=== PATIENT | male | born 1965 | race Caucasian/White ===

== ENCOUNTER 2017-07-02 23:05 | Inpatient (IN) | payer MEDICAID, OTHER ==
[~2017-07-02] VITALS: Ht 182.9 cm; Wt 84.0 kg
[~2017-07-02 23:05] MED LIST: ASPI81CH6 PO; FERR325T PO; LIPI40TA PO; LOSA25TA PO; METO25TA3 PO; PLAV75TA29 PO; PRED10 PO
[2017-07-02 23:18] VITALS: BP 108/72; PULSE 97; RESP 20; TEMP 98.6
[2017-07-02] MEDS ORDERED: SODIUM CHLORID 0.9% 500 ML INJ 500 ML IV ONE (23:30)
[2017-07-02] MEDS ORDERED: ASPIRIN 81 MG CHEW TAB PO ONE (23:30)
[2017-07-02] MEDS ORDERED: SODIUM CHLORIDE 0.9% FLUSH 10 ML FLUSH IVF PRN (23:30)
[2017-07-02 23:31] VITALS: BP 108/72; PULSE 72; RESP 20; O2SAT 99
[2017-07-02 23:34] LABS: AUTOMATED NEUTROPHIL # 7.2 TH/MM3 (1.8-7.7); BASOPHIL % 0.3 % (0.0-2.0); EOSINOPHIL # 0.4 TH/MM3 (0-0.4); EOSINOPHIL % 4.5 % (0.0-4.0); HEMATOCRIT 42.1 % (39.0-51.0); LYMPH % 8.3 % (9.0-44.0); LYMPHOCYTE # 0.8 TH/MM3 (1.0-4.8); MEAN CELL VOLUME 89.4 FL (80.0-100.0); MEAN CORPUSCULAR HEMOGLOBIN 29.6 PG (27.0-34.0); MEAN CORPUSCULAR HGB CONC 33.2 % (32.0-36.0); MEAN PLATELET VOLUME 7.6 FL (7.0-11.0); MONO % 13.3 % (0.0-8.0); MONOCYTE # 1.3 TH/MM3 (0-0.9); NEUT % 73.6 % (16.0-70.0); PLATELET COUNT 435 TH/MM3 (150-450); RED BLOOD COUNT 4.71 MIL/MM3 (4.50-5.90); RED CELL DISTRIBUTION WIDTH 13.3 % (11.6-17.2); WHITE BLOOD COUNT 9.7 TH/MM3 (4.0-11.0)
[2017-07-02] MEDS: NITROGLYCERIN 0.4 MG SL 25 TABS/BTL SL SCH ×2 (23:35→23:51)
--- NOTE | 2017-07-02 23:37 | PD ---
HPI Chief Complaint: Chest Pain Time Seen by Provider: 23:19 Travel History International Travel<30 days: No Contact w/Intl Traveler<30days: No Traveled to known affect area: No History of Present Illness HPI Patient is a 51-year-old male with history of coronary artery disease, with history of an NM 2 years ago (2 cardiac stents placed at that time), presents the emergency room with complaints of chest pain. Patient reports that since 3 AM last night, he has been having chest pain. Patient reports that chest pain woke him up from his sleep, chest pain is located to his substernal to epigastric region. Patient reports that pain feels like a constant burning to that area. Patient reports that pain is constant but waxes and wanes as far as intensity of pain. Reports that the pain feels similar to when he has had a heart attack in the past but a little lower than where he had his heart attack. Patient reports that he does not feel any nausea or vomiting with the symptoms , denies any diaphoresis, denies any shortness of breath this chest pain. Patient does follow-up with Dr. Sanchez, his director of annual giving. PFSH Past Medical History Arthritis: No Asthma: No Autoimmune Disease: No Heart Rhythm Problems: No Cancer: No Cardiovascular Problems: No High Cholesterol: Yes Chest Pain: No Congestive Heart Failure: No COPD: No Cerebrovascular Accident: Yes Diabetes: No Diminished Hearing: No Endocrine: No Gastrointestinal Disorders: Yes (ULCERATIVE COLITIS) GERD: No Glaucoma: No Genitourinary: No Headaches: No Hepatitis: No Hiatal Hernia: No Hypertension: Yes Immune Disorder: No Kidney Stones: No Musculoskeletal: Yes (LUMBAR HERNIATED DISC, CERVICAL PROBLEMS) Psychiatric: No Respiratory: No Myocardial Infarction: Yes Renal Failure: No Seizures: No Sleep Apnea: No Thyroid Disease: No Ulcer: No Tetanus Vaccination: Unknown Influenza Vaccination: No PNEUMOCCOCAL Vaccine (Year): 2 Past Surgical History Abdominal Surgery: No AICD: No Body Medical Devices: NONE Cardiac Surgery: No Ear Surgery: No Endocrine Surgery: No Eye Surgery: No Genitourinary Surgery: No Gynecologic Surgery: No Joint Replacement: No Oral Surgery: Yes (WISDOM TEETH) Pacemaker: No Thoracic Surgery: No Social History Alcohol Use: Yes (SOCIALLY) Tobacco Use: No Substance Use: No Allergies-Medications (Allergen,Severity, Reaction): Coded Allergies: mesalamine (Unverified Allergy, Severe, "LIALDA" DUE TO COLITIS, 07/02/17) ibuprofen (Unverified Allergy, Intermediate, DUE TO COLITIS, 07/02/17) TOLD PER MD levofloxacin (Unverified Allergy, Unknown, DUE TO COLITIS, 07/02/17) Reported Meds & Prescriptions Reported Meds & Active Scripts Active Lipitor (Atorvastatin Calcium) 40 Mg Tab 80 Mg PO DAILY Reported Metoprolol Tartrate 25 Mg Tab 12.5 Mg PO BID Plavix (Clopidogrel Bisulfate) 75 Mg Tab 75 Mg PO DAILY Prednisone 10 Mg Tab 10 Mg PO DAILY Aspirin Low Dose (Aspirin) 81 Mg Chew 81 Mg PO DAILY Review of Systems General / Constitutional: No: Fever Eyes: No: Visual changes HENT: No: Headaches Cardiovascular: Positive: Chest Pain or Discomfort Respiratory: No: Cough, Shortness of Breath, Wheezing Gastrointestinal: No: Abdominal Pain Genitourinary: No: Dysuria Musculoskeletal: No: Pain Skin: No Rash Neurologic: No: Weakness Psychiatric: No: Depression Endocrine: No: Polydipsia Hematologic/Lymphatic: No: Easy Bruising Physical Exam Narrative GENERAL: Mild distress SKIN: Focused skin assessment warm/dry. HEAD: Atraumatic. Normocephalic. EYES: Pupils equal and round. No scleral icterus. No injection or drainage. ENT: No nasal bleeding or discharge. Mucous membranes pink and moist. NECK: Trachea midline. No JVD. CARDIOVASCULAR: Regular rate and rhythm. No murmur appreciated. RESPIRATORY: No accessory muscle use. Clear to auscultation. Breath sounds equal bilaterally. GASTROINTESTINAL: Abdomen soft, non-tender, nondistended. Hepatic and splenic margins not palpable. MUSCULOSKELETAL: No obvious deformities. No clubbing. No cyanosis. No edema. NEUROLOGICAL: Awake and alert. No obvious cranial nerve deficits. Motor grossly within normal limits. Normal speech. PSYCHIATRIC: Anxious mood and affect; insight and judgment normal. Data Data Last Documented VS Vital Signs Date Time Temp Pulse Resp B/P (MAP) Pulse Ox O2 Delivery O2 Flow Rate FiO2 07/02/17 23:55 70 20 82/48 (59) 99 Nasal Cannula 2.00 07/02/17 23:18 98.6 Orders Orders B-Type Natriuretic Peptide (07/02/17 23:24) Ckmb (Isoenzyme) Profile (07/02/17 23:24) Complete Blood Count With Diff (07/02/17 23:24) Comprehensive Metabolic Panel (07/02/17 23:24) Prothrombin Time / Inr (Pt) (07/02/17 23:24) Act Partial Throm Time (Ptt) (07/02/17 23:24) Troponin I (07/02/17 23:24) Lipase (07/02/17 23:24) Chest, Single Ap (07/02/17 23:24) Ecg Monitoring (07/02/17 23:24) Iv Access Insert/Monitor (07/02/17 23:24) Oximetry (07/02/17 23:24) Aspirin Chew (Aspirin Chew) (07/02/17 23:30) Sodium Chloride 0.9% Flush (Ns Flush) (07/02/17 23:30) Nitroglycerin Sl (Nitrostat Sl) (07/02/17 23:30) Sodium Chlorid 0.9% 500 Ml Inj (Ns 500 M (07/02/17 23:30) Famotidine Inj (Pepcid Inj) (07/03/17 00:00) Al-Mag Hy-Si 40-40-4 Mg/Ml Liq (Mag-Al P (07/03/17 00:00) Lidocaine 2% Viscous (Xylocaine 2% Visco (07/03/17 00:00) Ct Abd/Pel W Iv Contrast(Rout) (07/03/17 00:01) Potassium Chloride (Kcl) (07/03/17 00:15) Morphine Inj (Morphine Inj) (07/03/17 00:15) Iohexol 350 Inj (Omnipaque 350 Inj) (07/03/17 00:45) Labs Laboratory Tests Test 07/02/17 23:20 White Blood Count 9.7 TH/MM3 Red Blood Count 4.71 MIL/MM3 Hemoglobin 14.0 GM/DL Hematocrit 42.1 % Mean Corpuscular Volume 89.4 FL Mean Corpuscular Hemoglobin 29.6 PG Mean Corpuscular Hemoglobin Concent 33.2 % Red Cell Distribution Width 13.3 % Platelet Count 435 TH/MM3 Mean Platelet Volume 7.6 FL Neutrophils (%) (Auto) 73.6 % Lymphocytes (%) (Auto) 8.3 % Monocytes (%) (Auto) 13.3 % Eosinophils (%) (Auto) 4.5 % Basophils (%) (Auto) 0.3 % Neutrophils # (Auto) 7.2 TH/MM3 Lymphocytes # (Auto) 0.8 TH/MM3 Monocytes # (Auto) 1.3 TH/MM3 Eosinophils # (Auto) 0.4 TH/MM3 Basophils # (Auto) 0.0 TH/MM3 CBC Comment DIFF FINAL Differential Comment Prothrombin Time 10.3 SEC Prothromb Time International Ratio 1.0 RATIO Activated Partial Thromboplast Time 25.0 SEC Blood Urea Nitrogen 14 MG/DL Creatinine 0.99 MG/DL Random Glucose 121 MG/DL Total Protein 7.1 GM/DL Albumin 3.2 GM/DL Calcium Level 8.4 MG/DL Alkaline Phosphatase 89 U/L Aspartate Amino Transf (AST/SGOT) 15 U/L Alanine Aminotransferase (ALT/SGPT) 17 U/L Total Bilirubin 0.4 MG/DL Sodium Level 139 MEQ/L Potassium Level 3.4 MEQ/L Chloride Level 104 MEQ/L Carbon Dioxide Level 28.7 MEQ/L Anion Gap 6 MEQ/L Estimat Glomerular Filtration Rate 79 ML/MIN Total Creatine Kinase 96 U/L Troponin I LESS THAN 0.02 NG/ML B-Type Natriuretic Peptide 134 PG/ML Lipase 4842 U/L [facility] Medical Decision Making Medical Screen Exam Complete: Yes Emergency Medical Condition: Yes Medical Record Reviewed: Yes Interpretation(s) EKG at 2316: Normal sinus rhythm at 64 bpm, QT/QTC 415/425, no acute ST-T wave changes Vital Signs Date Time Temp Pulse Resp B/P (MAP) Pulse Ox O2 Delivery O2 Flow Rate FiO2 07/02/17 23:18 98.6 97 20 108/72 (84) Differential Diagnosis ACS, arrhythmia, pancreatitis, GERD, electrolyte abnormality Narrative Course During the course of the patients emergency department visit, the patients history, examination, and differential diagnosis were reviewed with the patient. The patient was placed on a cardiac technician with oximetry and frequent blood pressure monitoring. The patient had an IV access obtained and blood work sent for analysis. The patient was initially provided aspirin as well as sublingual nitroglycerin BP after 1 SL nitro 82/48 - will hold nitro at this time, nitro did not help his symptoms The patients laboratory studies were reviewed and remarkable for: Laboratory Tests Test 07/02/17 23:20 White Blood Count 9.7 TH/MM3 (4.0-11.0) Red Blood Count 4.71 MIL/MM3 (4.50-5.90) Hemoglobin 14.0 GM/DL (13.0-17.0) Hematocrit 42.1 % (39.0-51.0) Mean Corpuscular Volume 89.4 FL (80.0-100.0) Mean Corpuscular Hemoglobin 29.6 PG (27.0-34.0) Mean Corpuscular Hemoglobin Concent 33.2 % (32.0-36.0) Red Cell Distribution Width 13.3 % (11.6-17.2) Platelet Count 435 TH/MM3 (150-450) Mean Platelet Volume 7.6 FL (7.0-11.0) Neutrophils (%) (Auto) 73.6 % (16.0-70.0) Lymphocytes (%) (Auto) 8.3 % (9.0-44.0) Monocytes (%) (Auto) 13.3 % (0.0-8.0) Eosinophils (%) (Auto) 4.5 % (0.0-4.0) Basophils (%) (Auto) 0.3 % (0.0-2.0) Neutrophils # (Auto) 7.2 TH/MM3 (1.8-7.7) Lymphocytes # (Auto) 0.8 TH/MM3 (1.0-4.8) Monocytes # (Auto) 1.3 TH/MM3 (0-0.9) Eosinophils # (Auto) 0.4 TH/MM3 (0-0.4) Basophils # (Auto) 0.0 TH/MM3 (0-0.2) CBC Comment DIFF FINAL Differential Comment Prothrombin Time 10.3 SEC (9.8-11.6) Prothromb Time International Ratio 1.0 RATIO Activated Partial Thromboplast Time 25.0 SEC (24.3-30.1) Blood Urea Nitrogen 14 MG/DL (7-18) Creatinine 0.99 MG/DL (0.60-1.30) Random Glucose 121 MG/DL (74-106) Total Protein 7.1 GM/DL (6.4-8.2) Albumin 3.2 GM/DL (3.4-5.0) Calcium Level 8.4 MG/DL (8.5-10.1) Alkaline Phosphatase 89 U/L (45-117) Aspartate Amino Transf (AST/SGOT) 15 U/L (15-37) Alanine Aminotransferase (ALT/SGPT) 17 U/L (12-78) Total Bilirubin 0.4 MG/DL (0.2-1.0) Sodium Level 139 MEQ/L (136-145) Potassium Level 3.4 MEQ/L (3.5-5.1) Chloride Level 104 MEQ/L (98-107) Carbon Dioxide Level 28.7 MEQ/L (21.0-32.0) Anion Gap 6 MEQ/L (5-15) Estimat Glomerular Filtration Rate 79 ML/MIN (>89) Total Creatine Kinase 96 U/L (39-308) Troponin I LESS THAN 0.02 NG/ML B-Type Natriuretic Peptide 134 PG/ML (0-100) Lipase 4842 U/L (73-393) Patient's lipase 4,842 - patient with most likely pancreatitis given his pain to his epigastrium. Ct ordered to evaluate pancreas Patient signed out to care of Dr. Root at change of shift, patient pending CT of abdomen and pelvis and dispo of patient Diagnosis Primary Impression: Pancreatitis Qualified Codes: K85.90 - Acute pancreatitis without necrosis or infection, unspecified Karla Wright DO Jul 02, 2017 23:37
[2017-07-02 23:42] LABS: CHLORIDE 104 MEQ/L (98-107); SODIUM (NA) 139 MEQ/L (136-145)
[2017-07-02 23:45] LABS: CALCIUM 8.4 MG/DL (8.5-10.1)
[2017-07-02 23:46] LABS: ALBUMIN 3.2 GM/DL (3.4-5.0); BICARBONATE 28.7 MEQ/L (21.0-32.0); BLOOD UREA NITROGEN 14 MG/DL (7-18); GLUCOSE,RANDOM 121 MG/DL (74-106)
[2017-07-02 23:47] LABS: PROTHROMBIN TIME - PATIENT 10.3 SEC (9.8-11.6)
[2017-07-02 23:49] LABS: ALT (GPT) 17 U/L (12-78); AST (GOT) 15 U/L (15-37); CREATININE 0.99 MG/DL (0.60-1.30); GLOMERULAR FILTRATION RATE 79 ML/MIN (>89)
[2017-07-02 23:50] LABS: TOTAL BILIRUBIN ADULT 0.4 MG/DL (0.2-1.0); TOTAL PROTEIN 7.1 GM/DL (6.4-8.2)
[2017-07-02 23:52] LABS: ALKALINE PHOSPHATASE 89 U/L (45-117)
[2017-07-02 23:54] LABS: TROPONIN I LESS THAN 0.02 NG/ML (0.02-0.05)
[2017-07-02 23:55] VITALS: BP 82/48; PULSE 70; RESP 20; O2SAT 99
[2017-07-03] VITALS (8 sets, daily range): BP systolic 84–138; BP diastolic 53–84; PULSE 52–71; RESP 15–20; TEMP 96.5–97.2; O2SAT 97–100
[2017-07-03] MEDS ORDERED: LIDOCAINE VISCOUS 2% SOLN 15 ML UDC PO ONE
[2017-07-03] MEDS ORDERED: FAMOTIDINE 20 MG/2 ML VIAL IV PUSH ONE
[2017-07-03] MEDS ORDERED: ALUMINUM/MAGNESIUM/SIMETH 30 ML CUP PO ONE
--- NOTE | 2017-07-03 00:07 | RADRPT ---
EXAM DATE/TIME: 07/02/2017 23:52 [facility] COMPARISON: CHEST SINGLE AP, June 08, 2015, 0:36. INDICATIONS : Chest pain. MEDICAL HISTORY : None. SURGICAL HISTORY : None. ENCOUNTER: Initial ACUITY: 1 day PAIN SCORE: 6/10 LOCATION: Bilateral chest FINDINGS: A single view of the chest demonstrates the lungs to be symmetrically aerated without evidence of mas s, infiltrate or effusion. The cardiomediastinal contours are unremarkable. Osseous structures are intact. CONCLUSION: No acute disease. Kurt Gonzales MD on July 03, 2017 at 0:05 Board Certified Radiologist. This report was verified electronically.
[2017-07-03] MEDS ORDERED: MORPHINE SULFATE 4 MG/ML INJ IV PUSH ONE (00:15)
[2017-07-03] MEDS ORDERED: POTASSIUM CHLORIDE 20 MEQ CONTROLLED RELEASE TAB PO ONE (00:15)
[2017-07-03] MEDS ORDERED: IOHEXOL 350 MG/ML 10 ML VIAL (for RAD DIAG) IVCONTRAST ONE (00:45)
--- NOTE | 2017-07-03 02:14 | RADRPT ---
EXAM DATE/TIME: 07/03/2017 00:39 [facility] COMPARISON: CT ABDOMEN & PELVIS W CONTRAST, June 12, 2012, 17:49. INDICATIONS : Epigastric abdominal pain. IV CONTRAST: 100 cc Omnipaque 350 (iohexol) IV ORAL CONTRAST: No oral contrast ingested. RADIATION DOSE: 10.87 CTDIvol (mGy) MEDICAL HISTORY : Ulcerative colitis. SURGICAL HISTORY : Laminectomy. ENCOUNTER: Initial ACUITY: 1 day PAIN SCALE: 10/10 LOCATION: upper quadrant abdomen TECHNIQUE: Volumetric scanning of the abdomen and pelvis was performed. Using automated exposure control and ad justment of the mA and/or kV according to patient size, radiation dose was kept as low as reasonably achievable to obtain optimal diagnostic quality images. DICOM format image data is available electro nically for review and comparison. FINDINGS: LOWER LUNGS: The visualized lower lungs are clear. LIVER: There are several enhancing areas in the liver which are stable and are likely atypical hemangiomata, largest a 2.3 cm lesion in segment V. There are also multiple small low density lesions which may be cysts or hemangiomata, largest a 19 mm lesion just posterior to the proximal right portal vein. Pres ence on the prior exam confirms benignity of these. There are no suspicious lesions. No biliary ducta l dilatation. SPLEEN: Normal size without lesion. PANCREAS: Within normal limits. KIDNEYS: Normal in size and shape. There is no mass, stone or hydronephrosis. ADRENAL GLANDS: Within normal limits. VASCULAR: There is no aortic aneurysm. BOWEL/MESENTERY: There is slight fluid and gaseous distention of the colon. Small bowel is normal in caliber throughou t. No definite wall thickening or inflammatory change. ABDOMINAL WALL: Within normal limits. RETROPERITONEUM: There is no lymphadenopathy. BLADDER: No wall thickening or mass. REPRODUCTIVE: Within normal limits. INGUINAL: There is no lymphadenopathy or hernia. MUSCULOSKELETAL: Musculotendinous ossification at the origin of the left rectus femoris which is unchanged. No acute b naveen findings CONCLUSION: Benign-appearing liver lesions. Mild nonspecific fluid and gaseous distention of the colon. Kurt Gonzales MD on July 03, 2017 at 2:06 Board Certified Radiologist. This report was verified electronically.
[2017-07-03] MEDS ORDERED: BISACODYL 10 MG SUPP RECTAL PRN (02:45)
[2017-07-03] MEDS ORDERED: SENNOSIDES 8.6 MG TAB PO PRN (02:45)
[2017-07-03] MEDS ORDERED: ONDANSETRON HCL 4 MG/2 ML VIAL IVP PRN (02:45)
[2017-07-03] MEDS ORDERED: LACTULOSE SYRUP 20 GM/30 ML CUP PO PRN (02:45)
[2017-07-03] MEDS ORDERED: MAGNESIUM HYDROXIDE SUSP 30 ML CUP PO PRN (02:45)
[2017-07-03] MEDS ORDERED: ACETAMINOPHEN 325 MG TAB PO PRN (02:45)
[2017-07-03] MEDS: SODIUM CHLOR 0.9% 1000 ML INJ 1,000 ML IV SCH ×2 (02:45→07:45)
[2017-07-03] MEDS ORDERED: NALOXONE HCL 0.4 MG/ML AMP IV PUSH PRN (02:45)
[2017-07-03] MEDS ORDERED: SODIUM CHLORIDE 0.9% FLUSH 10 ML FLUSH IV FLUSH PRN (02:45)
--- NOTE | 2017-07-03 02:46 | PD ---
Physical Exam Time Seen by Provider: 02:[address] Lee left this patient with me to check the results of the CT scan and make a disposition. Data Data Last Documented VS Vital Signs Date Time Temp Pulse Resp B/P (MAP) Pulse Ox O2 Delivery O2 Flow Rate FiO2 07/03/17 01:00 60 20 104/57 (73) 98 07/02/17 23:55 Nasal Cannula 2.00 07/02/17 23:18 98.6 Orders Orders B-Type Natriuretic Peptide (07/02/17 23:24) Ckmb (Isoenzyme) Profile (07/02/17 23:24) Complete Blood Count With Diff (07/02/17 23:24) Comprehensive Metabolic Panel (07/02/17 23:24) Prothrombin Time / Inr (Pt) (07/02/17 23:24) Act Partial Throm Time (Ptt) (07/02/17 23:24) Troponin I (07/02/17 23:24) Lipase (07/02/17 23:24) Chest, Single Ap (07/02/17 23:24) Ecg Monitoring (07/02/17 23:24) Iv Access Insert/Monitor (07/02/17 23:24) Oximetry (07/02/17 23:24) Aspirin Chew (Aspirin Chew) (07/02/17 23:30) Sodium Chloride 0.9% Flush (Ns Flush) (07/02/17 23:30) Nitroglycerin Sl (Nitrostat Sl) (07/02/17 23:30) Sodium Chlorid 0.9% 500 Ml Inj (Ns 500 M (07/02/17 23:30) Famotidine Inj (Pepcid Inj) (07/03/17 00:00) Al-Mag Hy-Si 40-40-4 Mg/Ml Liq (Mag-Al P (07/03/17 00:00) Lidocaine 2% Viscous (Xylocaine 2% Visco (07/03/17 00:00) Ct Abd/Pel W Iv Contrast(Rout) (07/03/17 00:01) Potassium Chloride (Kcl) (07/03/17 00:15) Morphine Inj (Morphine Inj) (07/03/17 00:15) Iohexol 350 Inj (Omnipaque 350 Inj) (07/03/17 00:45) Labs Laboratory Tests Test 07/02/17 23:20 White Blood Count 9.7 TH/MM3 Red Blood Count 4.71 MIL/MM3 Hemoglobin 14.0 GM/DL Hematocrit 42.1 % Mean Corpuscular Volume 89.4 FL Mean Corpuscular Hemoglobin 29.6 PG Mean Corpuscular Hemoglobin Concent 33.2 % Red Cell Distribution Width 13.3 % Platelet Count 435 TH/MM3 Mean Platelet Volume 7.6 FL Neutrophils (%) (Auto) 73.6 % Lymphocytes (%) (Auto) 8.3 % Monocytes (%) (Auto) 13.3 % Eosinophils (%) (Auto) 4.5 % Basophils (%) (Auto) 0.3 % Neutrophils # (Auto) 7.2 TH/MM3 Lymphocytes # (Auto) 0.8 TH/MM3 Monocytes # (Auto) 1.3 TH/MM3 Eosinophils # (Auto) 0.4 TH/MM3 Basophils # (Auto) 0.0 TH/MM3 CBC Comment DIFF FINAL Differential Comment Prothrombin Time 10.3 SEC Prothromb Time International Ratio 1.0 RATIO Activated Partial Thromboplast Time 25.0 SEC Blood Urea Nitrogen 14 MG/DL Creatinine 0.99 MG/DL Random Glucose 121 MG/DL Total Protein 7.1 GM/DL Albumin 3.2 GM/DL Calcium Level 8.4 MG/DL Alkaline Phosphatase 89 U/L Aspartate Amino Transf (AST/SGOT) 15 U/L Alanine Aminotransferase (ALT/SGPT) 17 U/L Total Bilirubin 0.4 MG/DL Sodium Level 139 MEQ/L Potassium Level 3.4 MEQ/L Chloride Level 104 MEQ/L Carbon Dioxide Level 28.7 MEQ/L Anion Gap 6 MEQ/L Estimat Glomerular Filtration Rate 79 ML/MIN Total Creatine Kinase 96 U/L Troponin I LESS THAN 0.02 NG/ML B-Type Natriuretic Peptide 134 PG/ML Lipase 4842 U/L [facility] Medical Record Reviewed: Yes Supervised Visit with SENAIT: No Interpretation(s) The complete metabolic profile shows potassium 3.4, GFR of 79, albumin 3.2 but is otherwise unremarkable. The BNP is 134 and the troponin I is less than 0.02. The lipase is 4842. Differential Diagnosis Pancreatitis, pancreatic pseudocyst, pancreatitis from viral, alcohol, gallstone , elevated lipids Narrative Course The patient does not drink alcohol. The cause of the pancreatitis is not known at this time. This is one reason to admit the patient along with IV fluids and n.p.o. Diagnosis Primary Impression: Pancreatitis Qualified Codes: K85.90 - Acute pancreatitis without necrosis or infection, unspecified Admitting Information Admitting Physician Requests: it Elijah Root MD Jul 03, 2017 02:46
[2017-07-03] MEDS ORDERED: SODIUM CHLORIDE 0.9% FLUSH 10 ML FLUSH IV FLUSH SCH (09:00)
[2017-07-03] MEDS ORDERED: DOCUSATE SODIUM 50 MG/SENNA 8.6 MG TAB PO SCH (09:00)
--- NOTE | 2017-07-03 12:53 | HHI.HP ---
HPI Service [facility] Primary Care Physician Dez Downing, DO Admission Diagnosis Pancreatitis Diagnoses: Travel History International Travel<30 Days: No Contact w/Intl Traveler <30 Da: No Traveled to Known Affected Are: No History of Present Illness pain yesterday 3am midepigastric could not sleep 630a.m. worse , went to [facility] gasx did not help by pm, came to hospital was nauseous no vomiting has hx of UC and chronic diarrhea has blood in stool , but thats chornic due to UC as well= now is flare up usually prednisone works well he recently weaned himself of prednisone 3-4 weeks ago just started back 2 days ago thus lately have been more freq diarrhea and more blood in diarrhea and serious cramping in lower abdomen as well no urinary symptoms Review of Systems Except as stated in HPI: all other systems reviewed are Neg Past Family Social History Past Medical History cad- s/p 2 stents hyperlipidemia chf ef 35-40% on echo in 01/2016 repeat echo- ef 55% 05/2016- DR Thomas Valdivia stress test with Dr Lopez- nov 2016 around 2015 nov Ulcerative Colitis- since age 38 yo Past Surgical History coronary angiogram and stenting laminectomy of lumbar spine in 2014 Allergies: Coded Allergies: mesalamine (Unverified Allergy, Severe, "LIALDA" DUE TO COLITIS, 07/02/17) ibuprofen (Unverified Allergy, Intermediate, DUE TO COLITIS, 07/02/17) TOLD PER levofloxacin (Unverified Allergy, Unknown, DUE TO COLITIS, 07/02/17) Family History father- first [place] at age 50 , now he is 84 Social History used to smoke, quit 15yrs ago started smoking at age 11 yo social drinker- last drink was more like 2 weeks ago no drugs Physical Exam Vital Signs Vital Signs Date Time Temp Pulse Resp B/P (MAP) Pulse Ox O2 Delivery O2 Flow Rate FiO2 07/03/17 08:35 96.5 58 15 103/70 (81) 100 07/03/17 08:20 07/03/17 07:30 54 16 87/62 (70) 97 07/03/17 07:30 52 16 Room Air 07/03/17 07:04 52 18 88/53 (65) 99 Room Air 07/03/17 03:50 59 20 84/56 (65) 98 07/03/17 02:51 71 20 138/84 (102) 98 07/03/17 01:00 60 20 104/57 (73) 98 07/03/17 00:30 60 20 97/63 (74) 98 07/02/17 23:55 70 20 82/48 (59) 99 Nasal Cannula 2.00 07/02/17 23:34 20 100 07/02/17 23:31 72 20 108/72 (84) 99 Nasal Cannula 2.00 07/02/17 23:18 98.6 97 20 108/72 (84) Physical Exam GENERAL: This is a well-nourished, well-developed patient, in no apparent distress. SKIN: No rashes, ecchymoses or lesions. Cool and dry. HEAD: Atraumatic. Normocephalic. No temporal or scalp tenderness. EYES: No scleral icterus. No injection or drainage. ENT: Nose without bleeding, purulent drainage or septal hematoma. Airway patent. NECK: Trachea midline. No JVD or lymphadenopathy. Supple, nontender, no meningeal signs. CARDIOVASCULAR: Regular rate and rhythm without murmurs, gallops, or rubs. RESPIRATORY: Clear to auscultation. Breath sounds equal bilaterally. No wheezes , rales, or rhonchi. GASTROINTESTINAL: Abdomen soft, nondistended. No guarding. tenderness at mid epigastric and ruq MUSCULOSKELETAL: Extremities without clubbing, cyanosis, or edema. No joint tenderness, effusion, or edema noted. No calf tenderness. NEUROLOGICAL: Awake and alert. Motor and sensory grossly within normal limits. Normal speech. Laboratory Laboratory Tests Test 07/02/17 23:20 White Blood Count 9.7 Red Blood Count 4.71 Hemoglobin 14.0 Hematocrit 42.1 Mean Corpuscular Volume 89.4 Mean Corpuscular Hemoglobin 29.6 Mean Corpuscular Hemoglobin Concent 33.2 Red Cell Distribution Width 13.3 Platelet Count 435 Mean Platelet Volume 7.6 Neutrophils (%) (Auto) 73.6 Lymphocytes (%) (Auto) 8.3 Monocytes (%) (Auto) 13.3 Eosinophils (%) (Auto) 4.5 Basophils (%) (Auto) 0.3 Neutrophils # (Auto) 7.2 Lymphocytes # (Auto) 0.8 Monocytes # (Auto) 1.3 Eosinophils # (Auto) 0.4 Basophils # (Auto) 0.0 CBC Comment DIFF FINAL Differential Comment Prothrombin Time 10.3 Prothromb Time International Ratio 1.0 Activated Partial Thromboplast Time 25.0 Blood Urea Nitrogen 14 Creatinine 0.99 Random Glucose 121 Total Protein 7.1 Albumin 3.2 Calcium Level 8.4 Alkaline Phosphatase 89 Aspartate Amino Transf (AST/SGOT) 15 Alanine Aminotransferase (ALT/SGPT) 17 Total Bilirubin 0.4 Sodium Level 139 Potassium Level 3.4 Chloride Level 104 Carbon Dioxide Level 28.7 Anion Gap 6 Estimat Glomerular Filtration Rate 79 Total Creatine Kinase 96 Troponin I LESS THAN 0.02 B-Type Natriuretic Peptide 134 Lipase 4842 Result Diagram: 07/02/17231907/02/172319 Caprini VTE Risk Assessment Caprini VTE Risk Assessment: Mod/High Risk (score >= 2) Caprini Risk Assessment Model Point Value = 1 Point Value = 2 Point Value = 3 Point Value = 5 Age 41-60 Minor surgery BMI > 25 kg/m2 Swollen legs Varicose veins or History of unexplained or recurrent spontaneous Oral contraceptives or hormone replacement Sepsis (< 1 month) Serious lung disease, including pneumonia (< 1 month) Abnormal pulmonary function Acute myocardial infarction Congestive heart failure (< 1 month) History of inflammatory bowel disease Medical patient at bed rest Age 61-74 Arthroscopic surgery Major open surgery (> 45 min) Laparoscopic surgery (> 45 min) Malignancy Confined to bed (> 72 hours) Immobilizing plaster cast Central venous access Age >= 75 History of VTE Family history of VTE Factor V Leiden Prothrombin [id number] Lupus anticoagulant Anticardiolipin antibodies Elevated serum homocysteine Heparin-induced thrombocytopenia Other congenital or acquired thrombophilia Stroke (< 1 month) Elective arthroplasty Hip, pelvis, or leg fracture Acute spinal cord injury (< 1 month) Prophylaxis Regimen Total Risk Factor Score Risk Level Prophylaxis Regimen 0-1 Low Early ambulation 2 Moderate Order ONE of the following: *Sequential Compression Device (SCD) *Heparin 5000 units SQ BID 3-4 Higher Order ONE of the following medications: *Heparin 5000 units SQ TID *Enoxaparin/Lovenox 40 mg SQ daily (WT < 150 kg, CrCl > 30 mL/min) *Enoxaparin/Lovenox 30 mg SQ daily (WT < 150 kg, CrCl > 10-29 mL/min) *Enoxaparin/Lovenox 30 mg SQ BID (WT < 150 kg, CrCl > 30 mL/min) AND/OR *Sequential Compression Device (SCD) 5 or more Highest Order ONE of the following medications: *Heparin 5000 units SQ TID (Preferred with Epidurals) *Enoxaparin/Lovenox 40 mg SQ daily (WT < 150 kg, CrCl > 30 mL/min) *Enoxaparin/Lovenox 30 mg SQ daily (WT < 150 kg, CrCl > 10-29 mL/min) *Enoxaparin/Lovenox 30 mg SQ BID (WT < 150 kg, CrCl > 30 mL/min) AND *Sequential Compression Device (SCD) Assessment and Plan Assessment and Plan Impression/ Plan: acute pancreatitis Ulcerative colitis exacerbation not requring pain meds no nause/ no vomitign / no diarrhea wants to 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 In the case of services not specified as inpatient-only, they are appropriately provided as inpatient services in accordance with the 2-midnight benchmark. Estimated LOS (days): 2 days is the estimated time the patient will need to remain in the hospital, assuming treatment plan goals are met and no additional complications. Post-Hospital Plan: Home Armida Joiner MD Jul 03, 2017 12:53
[2017-07-03] MEDS ORDERED: PILL SPLITTER OTHER PRN (13:15)
[2017-07-03] MEDS ORDERED: ASPIRIN 81 MG CHEW TAB PO SCH (14:00)
[2017-07-03] MEDS ORDERED: predniSONE 10 MG TAB PO SCH (14:00)
[2017-07-03] MEDS ORDERED: ATORVASTATIN 40 MG TAB PO SCH (14:00)
[2017-07-03] MEDS ORDERED: CLOPIDOGREL 75 MG TAB PO SCH (14:00)
[2017-07-03] MEDS ORDERED: METOPROLOL TARTRATE 25 MG TAB PO SCH (14:00)
--- NOTE | 2017-07-03 14:01 | EKG ---
Date Performed: 07/02/2017 Time Performed: 23:16:57 PTAGE: 51 years EKG: Sinus rhythm NORMAL ECG Since the PREVIOUS TRACING , no significant change noted PREVIOUS TRACIN02/14/2016 01.04 DOCTOR: Melonie Leone Interpretating Date/Time 07/03/2017 13:59:21
== END 2017-07-03 14:22 | disposition home or self-care (01) | DRG 439 ==
LOC: PHED 23:05 → PHEDA 07-03 02:48 → PH3A 07-03 08:29
PROVIDERS: ADMIT Internal Medicine; ATTEND Internal Medicine
DX: K85.90 Acute pancreatitis without necrosis or infection, unspecified (principal); K51.911 Ulcerative colitis, unspecified with rectal bleeding; I11.0 Hypertensive heart disease with heart failure; I50.9 Heart failure, unspecified; I25.10 Atherosclerotic heart disease of native coronary artery without angina pectoris; R07.9 Chest pain, unspecified; E78.5 Hyperlipidemia, unspecified; Z86.73 Personal history of transient ischemic attack (TIA), and cerebral infarction without residual deficits; Z95.5 Presence of coronary angioplasty implant and graft; Z87.891 Personal history of nicotine dependence; I25.2 Old myocardial infarction; Z79.02 Long term (current) use of antithrombotics/antiplatelets; Z79.82 Long term (current) use of aspirin
CPT/HCPCS: 71045; 74177; 80053; 82550; 83690; 83880; 84484; 85025; 85610; 85730; 93005; 96360; J7030; J7040; Q9967